=== PATIENT | female | born 1955 | race African-American/Black ===

== ENCOUNTER → 2016-11-27 | Outpatient (CLI) | payer MEDICARE, OTHER ==
[~2016-11-27] MED LIST: ALBUTEROL INHALER INH; AMLO5TAB2 PO; APIX5TAB PO; ASPI-515 PO; ASPI325T4 PO; ATOR20TA9 PO; ATOR40TA78 PO; BUPR-86 PO; CHLO50TA PO; CHOL200024 PO; CLON0.1T PO; CLOP75TA PO; LORA0.5T PO; METO200T3 PO; METO50TA82 PO; NICO1PAT4 TD; VALS320T2 PO
== END | disposition home or self-care (01) ==
LOC: CVU 06:46
PROVIDERS: ATTEND Internal Medicine Cardiovascular Disease
DX: I73.9 Peripheral vascular disease, unspecified (principal); I25.10 Atherosclerotic heart disease of native coronary artery without angina pectoris; M25.561 Pain in right knee; M25.562 Pain in left knee
CPT/HCPCS: 93922; 93925

== ENCOUNTER 2017-01-08 09:28 | Emergency (ER) | payer MEDICARE, OTHER ==
[~2017-01-08] VITALS: Ht 170.2 cm; Wt 85.0 kg
[2017-01-08] MEDS ORDERED: HYDROmorphone 1 MG/ML, 1ML ONE ×2 (10:24→12:18)
[2017-01-08] MEDS ORDERED: ONDANSETRON 2MG/ML, 2ML ONE (10:24)
[2017-01-08] MEDS ORDERED: SODIUM CHLORIDE FLUSH 10ML SYR IVF ONE (10:30)
[2017-01-08] MEDS ORDERED: ONDANSETRON 2MG/ML, 2ML IVPush ONE (10:30)
[2017-01-08] MEDS: HYDROmorphone 1 MG/ML, 1ML IVPush PRN ×2 (10:34→12:20)
[2017-01-08 10:43] LABS: PATH.CAST-FLAG NOT PRESENT; SPERM-FLAG NOT PRESENT; SRC-FLAG NOT PRESENT; XTAL-FLAG NOT PRESENT; YLC-FLAG NOT PRESENT
[2017-01-08 10:46] LABS: BLOOD UREA NITROGEN 14 mg/dL (7-18)
[2017-01-08 12:40] VITALS: BP 158/75
== END 2017-01-08 12:47 | disposition home or self-care (01) ==
LOC: ED 10:31
DX: M51.36 Other intervertebral disc degeneration, lumbar region (principal); R31.29 Other microscopic hematuria; R11.2 Nausea with vomiting, unspecified; I10 Essential (primary) hypertension; I25.2 Old myocardial infarction; I25.10 Atherosclerotic heart disease of native coronary artery without angina pectoris; Z90.710 Acquired absence of both cervix and uterus; F17.200 Nicotine dependence, unspecified, uncomplicated
CPT/HCPCS: 36415; 74176; 80048; 81001; 82040; 85025; 85610; 85730; 96374; 96375; 96376; 99285; J1170; J2405

== ENCOUNTER → 2017-02-06 | Outpatient (CLI) | payer MEDICARE, OTHER | END | disposition home or self-care (01) | LOC: CFH 07:36 | PROVIDERS: ATTEND Nurse Practitioner Critical Care Medicine | DX: M51.37 Other intervertebral disc degeneration, lumbosacral region (principal); M43.17 Spondylolisthesis, lumbosacral region; M48.07 Spinal stenosis, lumbosacral region; M51.26 Other intervertebral disc displacement, lumbar region | CPT/HCPCS: 72110; 72148 ==

== ENCOUNTER 2017-02-20 12:32 | Emergency (ER) | payer MEDICARE, OTHER ==
[~2017-02-20] VITALS: Ht 170.2 cm; Wt 85.8 kg
[2017-02-20 12:46] VITALS: BP 193/98
[2017-02-20] MEDS ORDERED: METO50TA82 PO (12:55)
[2017-02-20] MEDS ORDERED: KETOROLAC 30 MG/1 ML ONE (13:00)
[2017-02-20] MEDS ORDERED: KETOROLAC 30 MG/1 ML IM ONE (13:00)
[2017-02-20 13:47] LABS: BLOOD UREA NITROGEN 16 mg/dL (7-18)
== END 2017-02-20 14:16 | disposition home or self-care (01) ==
LOC: ED 13:31
DX: M79.641 Pain in right hand (principal); I11.9 Hypertensive heart disease without heart failure; I48.91 Unspecified atrial fibrillation; I25.10 Atherosclerotic heart disease of native coronary artery without angina pectoris; I25.2 Old myocardial infarction; Z90.710 Acquired absence of both cervix and uterus; Z95.5 Presence of coronary angioplasty implant and graft
CPT/HCPCS: 36415; 73130; 80048; 82040; 84550; 85025; 96372; 99285; J1885

== ENCOUNTER 2017-03-22 09:48 | Day surgery (SDC) | payer MEDICARE, OTHER ==
[2017-03-20 11:44] LABS: ASPARTATE AMINO TRANSFERASE 16 U/L (15-37); BLOOD UREA NITROGEN 13 mg/dL (7-18)
[~2017-03-22] VITALS: Ht 170.2 cm; Wt 84.5 kg
[2017-03-22] MEDS ORDERED: SODIUM CHLORIDE 0.9% 1,000 ML IV SCH (10:12)
[2017-03-22 10:38] VITALS: BP 158/90
[2017-03-22] MEDS ORDERED: MIDAZOLAM 1 MG/ML, 5ML ONE (13:46)
[2017-03-22] MEDS ORDERED: LIDOCAINE 2%, 20ML ONE (13:46)
[2017-03-22] MEDS ORDERED: NALOXONE 1 MG/ML, 2ML ONE (13:47)
[2017-03-22] MEDS ORDERED: FENTANYL PF 100 MCG/2ML ONE (13:47)
[2017-03-22] MEDS ORDERED: FLUMAZENIL 0.1 MG/1 ML, 5ML ONE (13:47)
[2017-03-22] MEDS ORDERED: HEPARIN 1,000 UNITS/ML, 10ML ONE (13:47)
[2017-03-22] MEDS ORDERED: VISIPAQUE 270 MG/ML, 150ML BOTTLE ONE (14:00)
[2017-03-22] MEDS ORDERED: HYDROcodone/APAP 7.5-325MG/15ML UDC ONE (16:22)
[2017-03-22] MEDS ORDERED: MORPHINE SULFATE 4 MG/ML, 1ML ONE (16:23)
[2017-03-22] MEDS ORDERED: morphine SULFATE 10 MG/ML, 1ML IVPush ONE (16:30)
[2017-03-22] MEDS ORDERED: HYDROcodone/APAP 7.5-325MG/15ML UDC PO PRN (16:30)
== END 2017-03-22 17:40 ==
LOC: OUT 09:48
PROVIDERS: ATTEND Internal Medicine Cardiovascular Disease
DX: I70.211 Atherosclerosis of native arteries of extremities with intermittent claudication, right leg (principal); I10 Essential (primary) hypertension; E78.5 Hyperlipidemia, unspecified; I25.10 Atherosclerotic heart disease of native coronary artery without angina pectoris; J45.909 Unspecified asthma, uncomplicated; F17.210 Nicotine dependence, cigarettes, uncomplicated
CPT/HCPCS: 36415; 37225; 75630; 80053; 85025; 85610; 85730; 99156; 99157; C1714; C1725; C1760; C1769; C1884; C1894; C2623; J1644; J2250; J2270; J3010; J3490; J7030; Q9966; J2310

== ENCOUNTER 2017-04-03 12:00 | Observation (INO) | payer MEDICARE, OTHER ==
[~2017-04-03] VITALS: Ht 170.2 cm; Wt 83.4 kg
[2017-04-03] MEDS ORDERED: NITROGLYCERIN SINGLE TAB 0.4 MG SL ONE ×2 (12:50→13:15)
[2017-04-03] MEDS ORDERED: NITROGLYCERIN 0.4 MG BOTTLE (25 TABS) SL ONE (13:00)
[2017-04-03] MEDS ORDERED: MORPHINE SULFATE 4 MG/ML, 1ML ONE ×2 (13:15→15:31)
[2017-04-03 13:19] LABS: BLOOD UREA NITROGEN 15 mg/dL (7-18)
[2017-04-03 13:26] LABS: ASPARTATE AMINO TRANSFERASE 18 U/L (15-37); IS PT STATUS REG ER OR PRE ER? YES
[2017-04-03] MEDS ORDERED: HYDR-882 PO (13:43)
[2017-04-03] MEDS ORDERED: LISI-167 PO (13:43)
[2017-04-03] MEDS ORDERED: ALBU6.7H INH (13:43)
[2017-04-03] MEDS ORDERED: CHOL5000 PO (13:43)
[2017-04-03] MEDS ORDERED: HYDR25TA11 PO (13:43)
[2017-04-03] MEDS ORDERED: CHLO25TA PO (13:43)
[2017-04-03] MEDS: morphine SULFATE 10 MG/ML, 1ML IVPush PRN ×3 (15:37→21:59)
[2017-04-03] MEDS ORDERED: hydrOXyzine 10MG TABLET PO PRN (16:00)
[2017-04-03] MEDS ORDERED: ONDANSETRON 2MG/ML, 2ML IVP PRN (16:00)
[2017-04-03] MEDS ORDERED: NITROGLYCERIN 0.4 MG/SPRAY SL PRN ×2 (16:00→21:30)
[2017-04-03] MEDS ORDERED: ACETAMINOPHEN 325 MG TABLET PO PRN (16:00)
[2017-04-03 16:15] VITALS: BP 157/90
[2017-04-03] MEDS ORDERED: HEPARIN 5,000 UNITS/ML, 1ML SQ SCH (16:30)
[2017-04-03] MEDS ORDERED: MAALOX/HYOSCYAMINE/LIDOCAINE 45 ML BOTTLE PO ONE (17:00)
[2017-04-03 19:16] LABS: IS PT STATUS REG ER OR PRE ER? NO
[2017-04-03 19:55] VITALS: BP 164/80
[2017-04-03] MEDS: SODIUM CHLORIDE FLUSH 10ML SYR IVF SCH (20:19)
[2017-04-03] MEDS ORDERED: ATORVASTATIN 20 MG TABLET PO SCH (21:00)
[2017-04-03] MEDS ORDERED: NITROGLYCERIN 0.4 MG BOTTLE (25 TABS) SL PRN (21:30)
[2017-04-03 21:57] VITALS: BP 155/78
[2017-04-04 01:40] LABS: IS PT STATUS REG ER OR PRE ER? NO
[2017-04-04 01:58] VITALS: BP 135/78
[2017-04-04 01:59] LABS: ASPARTATE AMINO TRANSFERASE 16 U/L (15-37); BLOOD UREA NITROGEN 21 mg/dL (7-18)
[2017-04-04 05:18] VITALS: BP 150/86
[2017-04-04] MEDS ORDERED: ASPIRIN 325 MG TABLET EC PO SCH (06:00)
[2017-04-04] MEDS ORDERED: METOPROLOL SUCCINATE 50 MG TAB.ER.24H PO SCH (06:00)
[2017-04-04 07:10] VITALS: BP 159/80
[2017-04-04] MEDS: SODIUM CHLORIDE FLUSH 10ML SYR IVF SCH (08:05)
[2017-04-04] MEDS ORDERED: REGADENOSON 0.4 MG/5 ML SYRINGE ONE (08:41)
[2017-04-04] MEDS ORDERED: APIXABAN 5 MG TABLET PO SCH (09:00)
[2017-04-04] MEDS ORDERED: CHLORTHALIDONE 25 MG TABLET PO SCH (09:00)
[2017-04-04] MEDS ORDERED: AMLODIPINE 5 MG TABLET PO SCH (09:00)
== END 2017-04-04 14:35 | disposition home or self-care (01) ==
LOC: ED 14:00 → EDIP 14:17 → INTOOBSV 14:17 → 5SO 16:04 → DCLOUNGE 04-04 14:18
PROVIDERS: ADMIT Internal Medicine; ATTEND Internal Medicine
DX: I25.119 Atherosclerotic heart disease of native coronary artery with unspecified angina pectoris (principal); E78.2 Mixed hyperlipidemia; I48.0 Paroxysmal atrial fibrillation; I73.9 Peripheral vascular disease, unspecified; I13.0 Hypertensive heart and chronic kidney disease with heart failure and stage 1 through stage 4 chronic kidney disease, or unspecified chronic kidney disease; N18.9 Chronic kidney disease, unspecified; L29.9 Pruritus, unspecified; F17.200 Nicotine dependence, unspecified, uncomplicated; D50.9 Iron deficiency anemia, unspecified; E87.1 Hypo-osmolality and hyponatremia; I25.2 Old myocardial infarction; I50.9 Heart failure, unspecified; Z95.5 Presence of coronary angioplasty implant and graft
CPT/HCPCS: 36415; 71010; 78452; 80053; 80061; 82728; 83540; 83550; 83880; 84484; 85025; 93005; 93017; 96374; 96376; 99285; A9502; C9898; G0378; J2270; J2785

== ENCOUNTER 2017-04-12 08:55 | Day surgery (SDC) | payer MEDICARE, OTHER ==
[~2017-04-12] VITALS: Ht 170.2 cm; Wt 81.8 kg
[~2017-04-12 08:55] MED LIST changes: +ALBU6.7H INH; +CHLO25TA PO; +CHOL5000 PO; +HYDR-882 PO; +HYDR25TA11 PO; +LISI-167 PO
[2017-04-12 09:53] VITALS: BP 193/91
[2017-04-12] MEDS ORDERED: BIVALIRUDIN 250 MG ONE (10:03)
[2017-04-12] MEDS ORDERED: FENTANYL PF 100 MCG/2ML ONE (10:03)
[2017-04-12] MEDS ORDERED: TICAGRELOR 90 MG TABLET ONE (10:03)
[2017-04-12] MEDS ORDERED: VERAPAMIL 2.5 MG/ML, 2ML ONE (10:03)
[2017-04-12] MEDS ORDERED: MIDAZOLAM 1 MG/ML, 5ML ONE (10:03)
[2017-04-12] MEDS ORDERED: LIDOCAINE 2%, 20ML ONE (10:04)
[2017-04-12] MEDS ORDERED: HEPARIN 1,000 UNITS/ML, 10ML ONE (10:04)
[2017-04-12 10:07] LABS: BLOOD UREA NITROGEN 15 mg/dL (7-18)
[2017-04-12] MEDS ORDERED: METO-93 PO (10:13)
[2017-04-12] MEDS: MORPHINE SULFATE 4 MG/ML, 1ML IVPush PRN ×2 (11:10→12:53)
[2017-04-12] MEDS ORDERED: SODIUM CHLORIDE 0.9% 1,000 ML IV SCH (11:30)
== END 2017-04-12 13:15 ==
LOC: CACL 08:55
PROVIDERS: ATTEND Internal Medicine Cardiovascular Disease
DX: I25.110 Atherosclerotic heart disease of native coronary artery with unstable angina pectoris (principal); I12.9 Hypertensive chronic kidney disease with stage 1 through stage 4 chronic kidney disease, or unspecified chronic kidney disease; N18.9 Chronic kidney disease, unspecified; E78.5 Hyperlipidemia, unspecified; I73.9 Peripheral vascular disease, unspecified; D50.9 Iron deficiency anemia, unspecified; J45.909 Unspecified asthma, uncomplicated; F41.9 Anxiety disorder, unspecified; Z82.49 Family history of ischemic heart disease and other diseases of the circulatory system; Z72.0 Tobacco use
CPT/HCPCS: 36415; 80048; 85610; 93458; 99156; C1769; C1894; J1644; J2250; J3010; J3490; Q9967; J0583

== ENCOUNTER 2017-04-18 11:51 | Observation (INO) | payer MEDICARE, OTHER ==
[2017-04-17 14:51] VITALS: BP 0/0
[2017-04-17 15:05] LABS: HEMATOCRIT 35.8 % (34.6-47.8); HEMOGLOBIN 11.6 g/dL (11.7-16.4); WHITE BLOOD COUNT 7.3 x10^3/uL (3.4-10)
[2017-04-17 15:16] LABS: BLOOD UREA NITROGEN 19 mg/dL (7-18)
[~2017-04-18] VITALS: Ht 170.2 cm; Wt 85.9 kg
[~2017-04-18 11:51] MED LIST changes: +METO-93 PO
[2017-04-18 12:23] VITALS: BP 150/80
[2017-04-18] MEDS ORDERED: SODIUM CHLORIDE 0.45% 1,000 ML IV SCH (12:30)
[2017-04-18] MEDS ORDERED: LIDOCAINE/PF 1%, 30ML ONE (13:27)
[2017-04-18] MEDS ORDERED: hydrALAzine 20 MG/ML, 1ML ONE (17:06)
[2017-04-18 17:45] VITALS: BP 150/92
[2017-04-18] MEDS ORDERED: MORPHINE SULFATE 4 MG/ML, 1ML ONE (17:51)
[2017-04-18] MEDS ORDERED: hydrALAzine 20 MG/ML, 1ML IV PRN (18:00)
[2017-04-18] MEDS: MORPHINE SULFATE 4 MG/ML, 1ML IV PRN ×3 (18:00→20:53)
[2017-04-18 19:30] VITALS: BP 138/82
[2017-04-18 23:27] VITALS: BP 137/80
[2017-04-18] MEDS ORDERED: ONDANSETRON 4 MG TABLET PO PRN (23:30)
[2017-04-19 03:20] VITALS: BP 128/76
[2017-04-19 06:44] VITALS: BP 143/78
[2017-04-19] MEDS ORDERED: HYDR-3307 PO (08:20)
== END 2017-04-19 10:48 | disposition home or self-care (01) ==
LOC: OUT 11:51 → 4NOR 17:41 → OUT 23:26 → 4NOR 23:26 → DCLOUNGE 04-19 10:33
PROVIDERS: ADMIT Internal Medicine Cardiovascular Disease; ATTEND Internal Medicine Cardiovascular Disease
DX: I70.211 Atherosclerosis of native arteries of extremities with intermittent claudication, right leg (principal); I25.119 Atherosclerotic heart disease of native coronary artery with unspecified angina pectoris; E78.2 Mixed hyperlipidemia; I48.0 Paroxysmal atrial fibrillation; F41.9 Anxiety disorder, unspecified; I12.9 Hypertensive chronic kidney disease with stage 1 through stage 4 chronic kidney disease, or unspecified chronic kidney disease; E78.00 Pure hypercholesterolemia, unspecified; J45.909 Unspecified asthma, uncomplicated; N18.9 Chronic kidney disease, unspecified; Z79.01 Long term (current) use of anticoagulants
CPT/HCPCS: 36415; 37186; 37225; 75710; 80048; 85025; 85610; 85730; 96374; 96376; 99156; 99157; C1714; C1751; C1769; C1884; C1894; C2623; G0378; J0360; J3490; 37184; 75630

== ENCOUNTER → 2017-05-02 | Outpatient (CLI) | payer MEDICARE, OTHER ==
[~2017-05-02] MED LIST changes: +ASPI325T17 PO; -ASPI325T4 PO; +HYDR-3307 PO; +NICO1PAT13 TD; -NICO1PAT4 TD
== END | disposition home or self-care (01) ==
LOC: CVU 07:27
PROVIDERS: ATTEND Internal Medicine Cardiovascular Disease
DX: I70.203 Unspecified atherosclerosis of native arteries of extremities, bilateral legs (principal); I10 Essential (primary) hypertension; E78.5 Hyperlipidemia, unspecified; Z98.61 Coronary angioplasty status; Z79.01 Long term (current) use of anticoagulants; F17.210 Nicotine dependence, cigarettes, uncomplicated
CPT/HCPCS: 93925

== ENCOUNTER → 2017-11-28 | Outpatient (CLI) | payer MEDICARE, OTHER ==
[~2017-11-28] MED LIST changes: -METO200T3 PO; +METO200T47 PO; +NICO-486 TD; -NICO1PAT13 TD
== END ==
LOC: CVU 11:48
PROVIDERS: ATTEND Internal Medicine Cardiovascular Disease
DX: I08.0 Rheumatic disorders of both mitral and aortic valves (principal); I65.23 Occlusion and stenosis of bilateral carotid arteries; I25.10 Atherosclerotic heart disease of native coronary artery without angina pectoris; Z72.0 Tobacco use; E78.5 Hyperlipidemia, unspecified; Z95.5 Presence of coronary angioplasty implant and graft
CPT/HCPCS: 93306; 93880

== ENCOUNTER → 2017-11-29 | Outpatient (CLI) | payer MEDICARE, OTHER | LOC: STAR 09:39 | PROVIDERS: ATTEND Surgery | DX: Z02.9 Encounter for administrative examinations, unspecified (principal) ==

== ENCOUNTER 2017-11-30 10:50 | Inpatient (IN) | payer MEDICARE, OTHER ==
[~2017-11-30] VITALS: Ht 170.2 cm; Wt 83.4 kg
[2017-11-30] VITALS (7 sets, daily range): BP systolic 121–158; BP diastolic 74–95
[2017-11-30] MEDS ORDERED: MAALOX/HYOSCYAMINE/LIDOCAINE 45 ML BTL PO ONE (11:30)
[2017-11-30] MEDS ORDERED: ASPIRIN 81 MG TABLET CHEW PO ONE ×2 (11:30)
[2017-11-30] MEDS ORDERED: MAALOX/HYOSCYAMINE/LIDOCAINE 45 ML BTL ONE (11:37)
[2017-11-30 11:53] LABS: MD YES
[2017-11-30 12:00] LABS: ALBUMIN 3.7 g/dL (3.4-5.0); ANION GAP 7 mmol/L (5-15); CALCIUM 8.6 mg/dL (8.5-10.1); CHLORIDE 103 mmol/L (98-107); CREATININE 1.04 mg/dL (0.55-1.02)
[2017-11-30 12:04] LABS: TROPONIN I < 0.015 ng/mL (0.000-0.045)
[2017-11-30] MEDS ORDERED: ASPIRIN 81 MG TABLET CHEW ONE (12:07)
[2017-11-30 12:35] LABS: MEAN CORPUSCULAR HEMOGLOBIN 20.4 pg (27.0-34.8); MEAN CORPUSCULAR VOLUME 68.2 fL (80-100); PLATELET COUNT 543 x10^3/uL (130-400); RED BLOOD COUNT 3.66 x10^6/uL (3.82-5.3); RED CELL DISTRIBUTION WIDTH 20.8 % (9.6-15.2)
[2017-11-30 12:44] LABS: BAND#(MANUAL) 0.08 x10^3/uL; BANDS%(MANUAL) 1 % (0-7); BASOS#(MANUAL) 0.08 x10^3/uL (0-0.1); BASOS% (MANUAL) 1 % (0-1); EOS#(MANUAL) 0.49 x10^3/uL (0.0-0.4); EOS% (MANUAL) 6 % (1-7); LYMPH#(MANUAL) 2.03 x10^3/uL (1-3.4); LYMPHS% (MANUAL) 25 % (22-44); MONOS#(MANUAL) 0.81 x10^3/uL (0.3-2.7); MONOS% (MANUAL) 10 % (2-9); SEG#(MANUAL) 4.62 x10^3/uL (1.8-6.8); SEGS% (MANUAL) 57 % (42-75)
[2017-11-30 12:45] LABS: ANISOCYTOSIS 1+; HYPOCHROMIA 1+; MICROCYTOSIS 1+; OVALOCYTES 1+
[2017-11-30 12:46] LABS: <PLATELET ESTIMATE> INCREASED; <PLT MORPHOLOGY> NORMAL PLT MORPH; TARGET CELLS 1+
[2017-11-30 12:53] LABS: MEAN CORPUSCULAR HGB CONC 29.9 g/dL (32.4-35.8)
[2017-11-30] MEDS ORDERED: ONDANSETRON 2MG/ML, 2ML IVPush PRN (14:00)
[2017-11-30] MEDS ORDERED: BISACODYL 10 MG SUPP PR PRN (14:00)
[2017-11-30] MEDS ORDERED: ACETAMINOPHEN 325 MG TABLET PO PRN (14:00)
[2017-11-30] MEDS ORDERED: DOCUSATE 100 MG CAPSULE PO PRN (14:00)
[2017-11-30] MEDS ORDERED: ENALAPRILAT 1.25 MG/ML, 2ML IVPush PRN (14:00)
[2017-11-30] MEDS ORDERED: POLYETHYLENE GLYCOL 17 GM PACKET PO PRN (14:00)
[2017-11-30] MEDS ORDERED: TEMPLATE NON-FORMULARY MED. (Albuterol Sulfate (Proventil Hfa) 2 PUFF(S)) INH SCH (14:30)
[2017-11-30 14:35] LABS: ABSOLUTE RETICS # 0.095 x10^6/uL (0.5-2.5)
[2017-11-30 14:44] LABS: RED BLOOD COUNT 3.44 x10^6/uL (3.82-5.3)
[2017-11-30 14:48] LABS: RETICULOCYTE COUNT % 2.77 % (0.5-1.5)
[2017-11-30 14:55] LABS: THYROID STIMULATING HORMONE 1.79 mIU/L (0.358-3.740)
[2017-11-30] MEDS ORDERED: ALBUTEROL SULFATE 2.5 MG/3 ML NPPB PRN (15:00)
[2017-11-30] MEDS: morphine SULFATE 10 MG/ML, 1ML IVPush PRN ×2 (15:42→21:22)
[2017-11-30] MEDS: NICOTINE 14MG/24 HR PATCH.TD24 TD SCH (15:42)
[2017-11-30] MEDS: ATORVASTATIN 20 MG TABLET PO SCH (20:52)
[2017-11-30] MEDS: ALBUTEROL SULFATE 2.5 MG/3 ML NPPB SCH (21:00)
[2017-12-01] MEDS: ASPIRIN 325 MG TABLET EC PO SCH (04:45)
[2017-12-01 04:46] VITALS: BP 143/74
[2017-12-01 05:39] LABS: MEAN CORPUSCULAR HEMOGLOBIN 22.2 pg (27.0-34.8); MEAN CORPUSCULAR HGB CONC 31.5 g/dL (32.4-35.8); MEAN CORPUSCULAR VOLUME 70.7 fL (80-100); MEAN PLATELET VOLUME 7.8 fL (7.4-10.4); PLATELET COUNT 474 x10^3/uL (130-400); RED BLOOD COUNT 3.54 x10^6/uL (3.82-5.3); RED CELL DISTRIBUTION WIDTH 24.2 % (9.6-15.2)
[2017-12-01 05:40] LABS: ALBUMIN 3.2 g/dL (3.4-5.0); ANION GAP 8 mmol/L (5-15); CALCIUM 8.1 mg/dL (8.5-10.1); CHLORIDE 104 mmol/L (98-107)
[2017-12-01 05:43] LABS: ALANINE AMINOTRANSFERASE 14 U/L (12-78); ALKALINE PHOSPHATASE 156 U/L (45-117); BILIRUBIN,TOTAL 0.6 mg/dL (0.2-1.0); CHOL/HDL RATIO 3.9; CHOLESTEROL, TOTAL 148 mg/dL (140-239); CREATININE 0.96 mg/dL (0.55-1.02); HDL CHOL % 26 % (28-40); HDL CHOLESTEROL (DIRECT) 38 mg/dL (40-60); LDL CHOLESTEROL,CALCULATED 82 mg/dL (54-169); LDL/HDL RATIO 2.2 (0.5-3.0); TOTAL PROTEIN 7.2 g/dL (6.4-8.2); TRIGLYCERIDES 141 mg/dL (50-200); VLDL CHOLESTEROL 28 mg/dL (0-25)
[2017-12-01 05:57] LABS: MD YES
[2017-12-01 06:02] LABS: EOS#(MANUAL) 0.15 x10^3/uL (0.0-0.4); EOS% (MANUAL) 2 % (1-7); LYMPH#(MANUAL) 2.13 x10^3/uL (1-3.4); LYMPHS% (MANUAL) 28 % (22-44); MONOS#(MANUAL) 0.61 x10^3/uL (0.3-2.7); MONOS% (MANUAL) 8 % (2-9); SEG#(MANUAL) 4.71 x10^3/uL (1.8-6.8); SEGS% (MANUAL) 62 % (42-75)
[2017-12-01 06:03] LABS: ANISOCYTOSIS 1+; MICROCYTOSIS 1+
[2017-12-01 06:05] LABS: POLYCHROMASIA 1+
[2017-12-01 06:06] LABS: <PLATELET ESTIMATE> INCREASED; <PLT MORPHOLOGY> NORMAL PLT MORPH
[2017-12-01 08:16] VITALS: BP 155/72
[2017-12-01] MEDS ORDERED: IRON DEXTRAN IV PER PHARMACY IV PRN (08:30)
[2017-12-01] MEDS ORDERED: IRON DEXTRAN COMPLEX 25 MG in SODIUM CHLORIDE 0.9% 50 ML IV ONE (09:00)
[2017-12-01] MEDS ORDERED: EPINEPHRINE 1 MG/ML, 1ML SQ PRN (09:00)
[2017-12-01] MEDS: AMLODIPINE 5 MG TABLET PO SCH (09:12)
[2017-12-01] MEDS ORDERED: IRON DEXTRAN COMPLEX 1,800 MG in SODIUM CHLORIDE 0.9% 250 ML IV ONE (10:00)
[2017-12-01 10:12] VITALS: BP 157/79
[2017-12-01 10:40] VITALS: BP 133/75
[2017-12-01] MEDS: ALBUTEROL SULFATE 2.5 MG/3 ML NPPB SCH ×2 (11:00→21:25)
[2017-12-01] MEDS ORDERED: DIPHENHYDRAMINE 50 MG CAPSULE PO PRN (12:00)
[2017-12-01] MEDS ORDERED: ACETAMINOPHEN 325 MG TABLET PO ONE (12:00)
[2017-12-01 13:47] VITALS: BP 172/71
[2017-12-01] MEDS: NICOTINE 14MG/24 HR PATCH.TD24 TD SCH (13:55)
[2017-12-01] MEDS: ATORVASTATIN 20 MG TABLET PO SCH (21:54)
[2017-12-01 21:55] VITALS: BP 143/77
[2017-12-01] MEDS: METOPROLOL SUCCINATE 50 MG TAB.ER.24H PO SCH (21:55)
[2017-12-01] MEDS: morphine SULFATE 10 MG/ML, 1ML IVPush PRN (22:18)
[2017-12-01] MEDS: GUAIFENESIN/DM 100-10MG, 5ML UDC PO PRN (22:18)
[2017-12-01 22:51] LABS: MICROSCOPIC NOT IND
[2017-12-01 23:00] LABS: OCCULT BLOOD POSITIVE (NEGATIVE)
[2017-12-02] MEDS: ASPIRIN 325 MG TABLET EC PO SCH (04:31)
[2017-12-02 04:32] VITALS: BP 157/74
[2017-12-02 04:44] LABS: MEAN CORPUSCULAR HEMOGLOBIN 23.6 pg (27.0-34.8); MEAN CORPUSCULAR VOLUME 73.7 fL (80-100); MEAN PLATELET VOLUME 7.9 fL (7.4-10.4); PLATELET COUNT 446 x10^3/uL (130-400); RED BLOOD COUNT 3.89 x10^6/uL (3.82-5.3); RED CELL DISTRIBUTION WIDTH 25.1 % (9.6-15.2)
[2017-12-02 04:53] LABS: ALBUMIN 3.1 g/dL (3.4-5.0); ANION GAP 8 mmol/L (5-15); CALCIUM 8.4 mg/dL (8.5-10.1); CHLORIDE 107 mmol/L (98-107)
[2017-12-02 05:00] LABS: ALKALINE PHOSPHATASE 168 U/L (45-117); BILIRUBIN,TOTAL 0.3 mg/dL (0.2-1.0); CREATININE 0.98 mg/dL (0.55-1.02); TOTAL PROTEIN 7.4 g/dL (6.4-8.2)
[2017-12-02 05:07] LABS: ALANINE AMINOTRANSFERASE 12 U/L (12-78)
[2017-12-02 05:33] LABS: BASOPHILS # (AUTO) 0.18 x10^3/uL (0-0.1); BASOPHILS % (AUTO) 2 % (0-1); EOSINOPHILS # (AUTO) 0.23 x10^3/uL (0-0.4); EOSINOPHILS % (AUTO) 2 % (1-7); LYMPHOCYTES # (AUTO) 3.09 x10^3/uL (1-3.4); LYMPHOCYTES % (AUTO) 30 % (22-44); MD SCAN; MONOCYTES # (AUTO) 0.74 x10^3/uL (0.2-0.8); MONOCYTES % (AUTO) 7 % (2-9); NEUTROPHILS # (AUTO) 6.18 x10^3/uL (1.8-6.8); NEUTROPHILS % (AUTO) 59 % (42-75)
[2017-12-02 10:00] VITALS: BP 154/82
[2017-12-02] MEDS: AMLODIPINE 5 MG TABLET PO SCH (11:19)
[2017-12-02] MEDS: ALBUTEROL SULFATE 2.5 MG/3 ML NPPB SCH ×2 (12:15→20:24)
[2017-12-02 13:45] VITALS: BP 127/74
[2017-12-02] MEDS: NICOTINE 14MG/24 HR PATCH.TD24 TD SCH (14:27)
[2017-12-02] MEDS: morphine SULFATE 10 MG/ML, 1ML IVPush PRN ×2 (18:01→21:54)
[2017-12-02] MEDS: GUAIFENESIN/DM 100-10MG, 5ML UDC PO PRN (18:01)
[2017-12-02 21:00] VITALS: BP 146/78
[2017-12-02] MEDS: ATORVASTATIN 20 MG TABLET PO SCH (21:54)
[2017-12-02] MEDS: METOPROLOL SUCCINATE 50 MG TAB.ER.24H PO SCH (21:58)
[2017-12-03 04:48] VITALS: BP 152/80
[2017-12-03 05:02] LABS: MEAN CORPUSCULAR HEMOGLOBIN 23.9 pg (27.0-34.8); MEAN CORPUSCULAR HGB CONC 32.3 g/dL (32.4-35.8); MEAN CORPUSCULAR VOLUME 73.9 fL (80-100); MEAN PLATELET VOLUME 7.8 fL (7.4-10.4); PLATELET COUNT 492 x10^3/uL (130-400); RED BLOOD COUNT 3.96 x10^6/uL (3.82-5.3); RED CELL DISTRIBUTION WIDTH 26.4 % (9.6-15.2)
[2017-12-03 05:09] LABS: ANION GAP 4 mmol/L (5-15); CALCIUM 8.6 mg/dL (8.5-10.1); CHLORIDE 105 mmol/L (98-107); CREATININE 0.93 mg/dL (0.55-1.02)
[2017-12-03 05:53] LABS: BASOPHILS # (AUTO) 0.07 x10^3/uL (0-0.1); BASOPHILS % (AUTO) 1 % (0-1); EOSINOPHILS # (AUTO) 0.26 x10^3/uL (0-0.4); EOSINOPHILS % (AUTO) 2 % (1-7); LYMPHOCYTES # (AUTO) 2.47 x10^3/uL (1-3.4); LYMPHOCYTES % (AUTO) 22 % (22-44); MD MORPH REVIEW ONLY; MONOCYTES # (AUTO) 0.85 x10^3/uL (0.2-0.8); MONOCYTES % (AUTO) 7 % (2-9); NEUTROPHILS # (AUTO) 7.84 x10^3/uL (1.8-6.8); NEUTROPHILS % (AUTO) 68 % (42-75)
[2017-12-03 05:54] LABS: ANISOCYTOSIS 2+; HYPOCHROMIA 1+; MICROCYTOSIS 2+; POLYCHROMASIA 1+
[2017-12-03 05:56] LABS: <PLATELET ESTIMATE> INCREASED; <PLT MORPHOLOGY> NORMAL PLT MORPH; OVALOCYTES 1+; TARGET CELLS 1+
[2017-12-03 09:08] VITALS: BP 152/82
[2017-12-03] MEDS: AMLODIPINE 5 MG TABLET PO SCH (09:09)
[2017-12-03] MEDS: ALBUTEROL SULFATE 2.5 MG/3 ML NPPB SCH ×2 (09:18→20:00)
[2017-12-03] MEDS: morphine SULFATE 10 MG/ML, 1ML IVPush PRN ×4 (09:33→21:34)
[2017-12-03 09:36] VITALS: BP 166/81
[2017-12-03] MEDS: NICOTINE 14MG/24 HR PATCH.TD24 TD SCH (12:58)
[2017-12-03 13:18] VITALS: BP 123/77
[2017-12-03] MEDS ORDERED: CLOPIDOGREL 300 MG TABLET PO ONE (14:00)
[2017-12-03] MEDS ORDERED: MOVIPREP POWDER 1 PREP KIT PO ONE (18:00)
[2017-12-03 20:59] VITALS: BP 164/87
[2017-12-03] MEDS: METOPROLOL SUCCINATE 50 MG TAB.ER.24H PO SCH (21:34)
[2017-12-03] MEDS: ATORVASTATIN 20 MG TABLET PO SCH (21:34)
[2017-12-04 01:16] VITALS: BP 165/82
[2017-12-04] MEDS: morphine SULFATE 10 MG/ML, 1ML IVPush PRN (01:18)
[2017-12-04 05:23] LABS: MEAN CORPUSCULAR HEMOGLOBIN 23.5 pg (27.0-34.8); MEAN CORPUSCULAR HGB CONC 31.4 g/dL (32.4-35.8); MEAN CORPUSCULAR VOLUME 74.9 fL (80-100); MEAN PLATELET VOLUME 7.8 fL (7.4-10.4); PLATELET COUNT 435 x10^3/uL (130-400); RED BLOOD COUNT 3.88 x10^6/uL (3.82-5.3); RED CELL DISTRIBUTION WIDTH 27.6 % (9.6-15.2)
[2017-12-04 05:28] LABS: ALBUMIN 3.3 g/dL (3.4-5.0); ANION GAP 6 mmol/L (5-15); CALCIUM 8.5 mg/dL (8.5-10.1); CHLORIDE 103 mmol/L (98-107)
[2017-12-04 05:33] LABS: ALANINE AMINOTRANSFERASE 15 U/L (12-78); ALKALINE PHOSPHATASE 172 U/L (45-117); BILIRUBIN,TOTAL 0.4 mg/dL (0.2-1.0); TOTAL PROTEIN 7.6 g/dL (6.4-8.2)
[2017-12-04 05:53] LABS: BASOPHILS # (AUTO) 0.12 x10^3/uL (0-0.1); BASOPHILS % (AUTO) 1 % (0-1); EOSINOPHILS # (AUTO) 0.23 x10^3/uL (0-0.4); EOSINOPHILS % (AUTO) 2 % (1-7); LYMPHOCYTES # (AUTO) 1.68 x10^3/uL (1-3.4); LYMPHOCYTES % (AUTO) 17 % (22-44); MD SCAN; MONOCYTES # (AUTO) 0.66 x10^3/uL (0.2-0.8); MONOCYTES % (AUTO) 7 % (2-9); NEUTROPHILS # (AUTO) 7.35 x10^3/uL (1.8-6.8); NEUTROPHILS % (AUTO) 73 % (42-75)
[2017-12-04 08:10] VITALS: BP 155/82
[2017-12-04] MEDS: AMLODIPINE 5 MG TABLET PO SCH (08:11)
[2017-12-04] MEDS ORDERED: MIDAZOLAM 1 MG/ML, 5ML ONE (10:04)
[2017-12-04] MEDS ORDERED: FENTANYL PF 100 MCG/2ML ONE (10:04)
[2017-12-04] MEDS ORDERED: GOLYTELY 4,000ML ORAL.SOL PO ONE (11:00)
[2017-12-04 11:26] VITALS: BP 157/80
[2017-12-04 14:33] VITALS: BP 155/99
[2017-12-04] MEDS: NICOTINE 14MG/24 HR PATCH.TD24 TD SCH (15:14)
[2017-12-04] MEDS: CLOPIDOGREL 75 MG TABLET PO SCH (15:14)
[2017-12-04 21:32] VITALS: BP 182/83
[2017-12-04] MEDS: METOPROLOL SUCCINATE 50 MG TAB.ER.24H PO SCH (21:34)
[2017-12-04] MEDS: ATORVASTATIN 20 MG TABLET PO SCH (21:34)
[2017-12-04 21:38] VITALS: BP 169/94
[2017-12-05 00:09] VITALS: BP 141/54
[2017-12-05] MEDS: morphine SULFATE 10 MG/ML, 1ML IVPush PRN (00:17)
[2017-12-05 06:00] LABS: MEAN CORPUSCULAR HGB CONC 31.7 g/dL (32.4-35.8); MEAN CORPUSCULAR VOLUME 75.8 fL (80-100); MEAN PLATELET VOLUME 8.1 fL (7.4-10.4); PLATELET COUNT 398 x10^3/uL (130-400); RED BLOOD COUNT 3.95 x10^6/uL (3.82-5.3); RED CELL DISTRIBUTION WIDTH 28.1 % (9.6-15.2)
[2017-12-05 06:12] LABS: CHLORIDE 105 mmol/L (98-107)
[2017-12-05 06:18] LABS: ALANINE AMINOTRANSFERASE 15 U/L (12-78); ALBUMIN 3.3 g/dL (3.4-5.0); ALKALINE PHOSPHATASE 188 U/L (45-117); ANION GAP 7 mmol/L (5-15); BILIRUBIN,TOTAL 0.5 mg/dL (0.2-1.0); CALCIUM 8.9 mg/dL (8.5-10.1); CREATININE 0.69 mg/dL (0.55-1.02); TOTAL PROTEIN 7.2 g/dL (6.4-8.2)
[2017-12-05 06:24] LABS: BASOPHILS % (AUTO) 1 % (0-1); EOSINOPHILS # (AUTO) 0.29 x10^3/uL (0-0.4); EOSINOPHILS % (AUTO) 4 % (1-7); LYMPHOCYTES # (AUTO) 1.78 x10^3/uL (1-3.4); LYMPHOCYTES % (AUTO) 22 % (22-44); MD SCAN; MONOCYTES % (AUTO) 9 % (2-9); NEUTROPHILS % (AUTO) 65 % (42-75)
[2017-12-05] MEDS ORDERED: FENTANYL PF 100 MCG/2ML ONE ×2 (07:42→08:44)
[2017-12-05] MEDS ORDERED: MIDAZOLAM 1 MG/ML, 5ML ONE (07:42)
[2017-12-05] MEDS: AMLODIPINE 5 MG TABLET PO SCH (07:48)
[2017-12-05 07:53] VITALS: BP 164/89
[2017-12-05] MEDS ORDERED: IRON DEXTRAN COMPLEX 1,350 MG in SODIUM CHLORIDE 0.9% 250 ML IV ONE (09:00)
[2017-12-05] MEDS ORDERED: IRON DEXTRAN COMPLEX 25 MG in SODIUM CHLORIDE 0.9% 50 ML IV ONE (09:30)
[2017-12-05 09:50] VITALS: BP 171/89
[2017-12-05 10:10] VITALS: BP 164/84
[2017-12-05] MEDS ORDERED: IRON DEXTRAN IV PER PHARMACY IV PRN (12:30)
[2017-12-05] MEDS: CLOPIDOGREL 75 MG TABLET PO SCH (12:55)
[2017-12-05 13:05] VITALS: BP 146/84
[2017-12-05] MEDS: NICOTINE 14MG/24 HR PATCH.TD24 TD SCH (14:04)
[2017-12-05] MEDS ORDERED: CLOP75TA PO (14:12)
[2017-12-05] MEDS: METOPROLOL SUCCINATE 50 MG TAB.ER.24H PO SCH (17:40)
== END 2017-12-05 17:45 | disposition home health service (06) | DRG 378 ==
LOC: ED 11:14 → EDIP 12:49 → 5SO 13:49
PROVIDERS: ADMIT Internal Medicine; ATTEND Internal Medicine
PROC: 30233N1 Transfusion of Nonautologous Red Blood Cells into Peripheral Vein, Percutaneous Approach (ICD-10-PCS; 2017-11-30)
PROC: B41F1ZZ Fluoroscopy of Right Lower Extremity Arteries using Low Osmolar Contrast (ICD-10-PCS; 2017-12-03)
PROC: 0DJ08ZZ Inspection of Upper Intestinal Tract, Via Natural or Artificial Opening Endoscopic (ICD-10-PCS; 2017-12-04)
PROC: 0DJD8ZZ Inspection of Lower Intestinal Tract, Via Natural or Artificial Opening Endoscopic (ICD-10-PCS; principal; 2017-12-05 08:30)
DX: K92.2 Gastrointestinal hemorrhage, unspecified (principal); D68.69 Other thrombophilia; E87.1 Hypo-osmolality and hyponatremia; I48.0 Paroxysmal atrial fibrillation; D50.9 Iron deficiency anemia, unspecified; F17.210 Nicotine dependence, cigarettes, uncomplicated; E78.5 Hyperlipidemia, unspecified; I12.9 Hypertensive chronic kidney disease with stage 1 through stage 4 chronic kidney disease, or unspecified chronic kidney disease; I25.118 Atherosclerotic heart disease of native coronary artery with other forms of angina pectoris; I25.2 Old myocardial infarction; I70.201 Unspecified atherosclerosis of native arteries of extremities, right leg; J45.909 Unspecified asthma, uncomplicated; K64.8 Other hemorrhoids; N18.2 Chronic kidney disease, stage 2 (mild); N39.3 Stress incontinence (female) (male); Z79.01 Long term (current) use of anticoagulants; Z79.82 Long term (current) use of aspirin; Z95.5 Presence of coronary angioplasty implant and graft; Z79.899 Other long term (current) drug therapy; Z71.6 Tobacco abuse counseling
CPT/HCPCS: 36415; 36430; 37224; 71045; 75710; 80048; 80053; 80061; 81003; 82040; 82272; 82728; 83010; 83021; 83540; 83550; 83615; 83735; 84100; 84443; 84466; 84484; 85014; 85018; 85025; 85045; 85660; 86850; 86880; 86900; 86923; 93005; 94640; 99151; 99152; 99156; 99157; 99285; J1644; J1750; J2250; J2405; J2720; J3010; J3490; J7613; C1769; C1894; C2623; J2270; J2310; J7050; P9016